=== PATIENT | female | born 1940 | race Caucasian/White ===

== ENCOUNTER 2018-10-28 19:59 | Emergency (ER) | payer MEDICARE ==
[~2018-10-28] VITALS: Ht 154.9 cm; Wt 59.0 kg
--- OUTSIDE RECORDS SUMMARY | 2018-10-28 20:01 | XMS REPORT ---
Author Author [facility] Address Unknown Phone Unavailable Care Team Providers Care Inventory Associate And Driver Name Role Phone Unavailable Unavailable Payers Payer Name Policy Type Policy Number Effective Date Expiration Date Problems This patient has no known problems. Allergies, Adverse Reactions, Alerts Allergy Name Allergy Type Status Severity Reaction(s) Onset Date Inactive Date Treating Clinician Comments scopolamine DA Active U 2018-06-25 00:00:00 tramadol DA Active U 2018-06-25 00:00:00 pentosan polysulfate sodium DA Active U 2018-06-25 00:00:00 citalopram DA Active U 2018-06-25 00:00:00 DELTROL DA Active U 2018-06-25 00:00:00 MYREBETRIA DA Active U 2018-06-25 00:00:00 TRANSDERMAL DA Active U 2018-06-25 00:00:00 No Known Allergies DA Active U 2014-12-23 00:00:00 Medications This patient has no known medications.
--- OUTSIDE RECORDS SUMMARY | 2018-10-28 20:01 | XMS REPORT | Summary of Care ---
Author Author [facility] [place] Organization [facility] [place] Address Unknown Phone Unavailable Encounter HQ Encntr_alias(FIN) [id number] Date(s): 01/22/17 - 01/22/17 [facility] [place] [address] [phone] Discharge Disposition: Home or Self Care Attending Physician: Renny Hernandez MD Vital Signs No data available for this section Problem List No data available for this section Allergies, Adverse Reactions, Alerts No data available for this section Medications No data available for this section Results No data available for this section Immunizations No data available for this section Procedures No data available for this section Social History No data available for this section Assessment and Plan No data available for this section
--- OUTSIDE RECORDS SUMMARY | 2018-10-28 20:01 | XMS REPORT | Continuity of Care Document ---
Author Author [facility] Interface Address Unknown Phone Unavailable Problems Problem Status Onset Date Classification Date Reported Comments Source I10 - ESSENTIAL (PRIMARY) HYPERTENSI Active 01/22/2017 [facility] [place] Medications Medication Details Route Status Patient Instructions Ordering Provider Order Date Source Allergies, Adverse Reactions, Alerts Substance Category Reaction Severity Reaction type Status Date Reported Comments Source Immunizations Immunization Date Given Site Status Last Updated Comments Source Results Order Name Results Value Reference Range Date Interpretation Comments Source Chest 2 views DX Chest 2 views DX EXAM: XR CHEST 2 VIEWS DATE: 01/22/2017 12:22 PM CDT INDICATION: - I10 Essential (primary) hypertension COMPARISON: 05/30/2010 TECHNIQUE: PA and lateral chest radiographs FINDINGS: The lungs are clear. The cardiomediastinal silhouette is normal. There is no acute bony abnormality. IMPRESSION: No acute abnormality SL: [id number] 01/22/2017 - - Read by: Zaida Colon Dictated Date/time: 01/22/17 14:06 Electronically Signed by: Zaida Colon 01/22/17 14:07 FINAL REPORT [facility] [place] Vital Signs Vital Sign Value Date Comments Source Encounters Location Location Details Encounter Type Encounter Number Reason For Visit Attending Provider ADM Date DC Date Status Source [facility] [place] [facility] [id number] Renny Hernandez 01/22/2017 01/23/2017 [facility] [place] Procedures Procedure Code Date Perfomer Comments Source
--- NOTE | 2018-10-28 21:32 | Diagnostic Imaging Report ---
Examination: Single AP view of the chest. COMPARISON: None. INDICATION: Chest wall pain IMPRESSION: 1. Lines and Tubes: None 2. Lungs are grossly clear. No consolidation or effusion. 3. Cardiomediastinal silhouette is normal. Pulmonary vasculature is normal. 4. No acute bony abnormalities. Soft tissues are grossly unremarkable. Signed by: Dr. Cody Ferreira M.D. on 10/28/2018 9:29 PM
[2018-10-28 22:07] LABS: BASOPHILS # (AUTO) 0.1 (0.0-0.1); BASOPHILS % 0.5 % (0.0-1.0); EOSINOPHILS # (AUTO) 0.3 (0.0-0.4); EOSINOPHILS % 3.6 % (0.0-6.0); HEMATOCRIT 38.3 % (34.2-44.1); HEMOGLOBIN 12.4 g/dL (12.0-16.0); LYMPHOCYTES # (AUTO) 2.4 (1.0-3.2); LYMPHOCYTES % 26.5 % (18.0-39.1); MEAN CORPUSCULAR HEMOGLOBIN 28.6 pg (28-32); MEAN CORPUSCULAR HGB CONC 32.4 g/dL (31-35); MEAN CORPUSCULAR VOLUME 88.5 fL (81-99); MONOCYTES # (AUTO) 0.8 (0.2-0.8); MONOCYTES % 8.8 % (4.4-11.3); NEUTROPHILS # (AUTO) 5.5 (2.1-6.9); NEUTROPHILS % 60.4 % (38.7-80.0); PLATELET COUNT 257 x10e3/uL (140-360); RED BLOOD COUNT 4.33 x10e6/uL (3.6-5.1); RED CELL DISTRIBUTION WIDTH 14.1 % (11.7-14.4)
[2018-10-28] MEDS ORDERED: DONEPEZIL HCL10 MG PO (22:16)
[2018-10-28] MEDS ORDERED: NAMENDA10 MG PO (22:16)
[2018-10-28] MEDS ORDERED: FLUTICASONE PRO16 GM (22:16)
[2018-10-28] MEDS ORDERED: FEXOFENADINE HC60 MG PO (22:16)
[2018-10-28] MEDS ORDERED: ESCITALOPRAM OXA5 MG PO (22:16)
[2018-10-28] MEDS ORDERED: TRAZODONE HCL50 MG PO (22:16)
[2018-10-28] MEDS ORDERED: GABAPENTIN300 MG PO (22:16)
[2018-10-28 22:20] LABS: ALBUMIN 3.5 g/dL (3.5-5.0); ALBUMIN/GLOBULIN RATIO 0.9 (0.8-2.0); ANION GAP 12.4 mmol/L (8-16); CALCIUM 9.4 mg/dL (8.4-10.2); CREATININE, SERUM 0.95 mg/dL (0.57-1.11); POTASSIUM 3.4 mmol/L (3.5-5.1)
[2018-10-28 22:26] LABS: BILIRUBIN,URINE NEGATIVE (NEGATIVE); CLARITY,URINE CLEAR (CLEAR); COLOR,URINE YELLOW (YELLOW); KETONES,URINE TRACE (NEGATIVE); LEUKOCYTE ESTERASE ,URINE NEGATIVE (NEGATIVE); NITRITE,URINE NEGATIVE (NEGATIVE); PROTEIN,URINE DIPSTICK NEGATIVE (NEGATIVE); URINE UROBILINOGEN 0.2 mg/dL (0.2 - 1)
[2018-10-28 22:27] LABS: CREATINE KINASE MB 1.1 ng/mL (0-5.0)
[2018-10-28 22:48] LABS: BACTERIA,URINE RARE /HPF; EPITHELIAL CELLS,URINE RARE /LPF; RBC,URINE 0-5 /HPF (0-5); WBC,URINE (MAN) 0-5 /HPF (0-5)
[2018-10-29 03:29] VITALS: BP 154/56
== END 2018-10-29 03:32 | disposition home or self-care (01) ==
LOC: ER 19:59
DX: R07.89 Other chest pain (principal); M94.0 Chondrocostal junction syndrome [Tietze]
CPT/HCPCS: 36415; 71045; 80053; 81001; 82550; 82553; 84484; 85025; 93005; 99284

== ENCOUNTER 2023-01-08 12:30 | Inpatient (IN) | payer MEDICARE ==
[~2023-01-08] VITALS: Ht 154.9 cm; Wt 59.0 kg
[~2023-01-08 12:30] MED LIST: DONEPEZIL HCL10 MG PO; ESCITALOPRAM OXA5 MG PO; FEXOFENADINE HC60 MG PO; FLUTICASONE PRO16 GM; GABAPENTIN300 MG PO; NAMENDA10 MG PO; TRAZODONE HCL50 MG PO
[2023-01-08] MEDS ORDERED: SODIUM CHLORIDE FLUSH 10 ML SYR INJ PRN ×2 (13:00→16:00)
[2023-01-08 14:04] LABS: BASOPHILS # (AUTO) 0.1 (0.0-0.1); BASOPHILS % 0.5 % (0.0-1.0); EOSINOPHILS # (AUTO) 0.4 (0.0-0.4); EOSINOPHILS % 3.9 % (0.0-6.0); HEMATOCRIT 41.3 % (34.2-44.1); HEMOGLOBIN 13.3 g/dL (12.0-16.0); LYMPHOCYTES % 21.2 % (18.0-39.1); MEAN CORPUSCULAR HEMOGLOBIN 29.8 pg (28-32); MEAN CORPUSCULAR HGB CONC 32.2 g/dL (31-35); MEAN CORPUSCULAR VOLUME 92.6 fL (81-99); MONOCYTES # (AUTO) 0.6 (0.2-0.8); MONOCYTES % 6.4 % (4.4-11.3); NEUTROPHILS # (AUTO) 6.3 (2.1-6.9); NEUTROPHILS % 67.8 % (38.7-80.0); PLATELET COUNT 282 x10e3/uL (140-360); RED BLOOD COUNT 4.46 x10e6/uL (3.6-5.1); RED CELL DISTRIBUTION WIDTH 14.5 % (11.7-14.4)
[2023-01-08 14:16] LABS: INR 0.95; PROTHROMBIN TIME 13.2 seconds (11.9-14.5)
[2023-01-08 14:17] LABS: PARTIAL THROMBOPLASTIN TIME 23.9 seconds (23.8-35.5)
[2023-01-08 14:26] LABS: ALANINE AMINOTRANSFERASE 10 IU/L (0-55); ALBUMIN 3.6 g/dL (3.5-5.0); ALBUMIN/GLOBULIN RATIO 0.9 (0.8-2.0); ALKALINE PHOSPHATASE 76 IU/L (40-150); ANION GAP 14.2 mmol/L (8-16); BLOOD UREA NITROGEN 24 mg/dL (7-26); BUN/CREATININE RATIO 24 (6-25); CALCIUM 9.4 mg/dL (8.4-10.2); CARBON DIOXIDE 23 mmol/L (22-29); CHLORIDE 107 mmol/L (98-107); CREATININE, SERUM 1.01 mg/dL (0.57-1.11); GLUCOSE 100 mg/dL (74-118); MAGNESIUM 2.2 MG/DL (1.3-2.1); PHOSPHORUS 4.1 MG/DL (2.3-4.7); POTASSIUM 4.2 mmol/L (3.5-5.1); SODIUM 140 mmol/L (136-145)
[2023-01-08] MEDS ORDERED: ONDANSETRON HCL INJ 2MG/ML 2ML 2 MG/ML VIAL IV PRN (16:00)
[2023-01-08] MEDS ORDERED: SODIUM CHLORIDE 0.9% 1000ML 1,000 ML IV ONE (16:00)
[2023-01-08 20:00] VITALS: BP 126/108; PULSE 89; RESP 18; TEMP 97.6; O2SAT 100
[2023-01-08] MEDS ORDERED: LISINOPRIL5 MG PO (20:10)
[2023-01-08] MEDS ORDERED: FAMOTIDINE20 MG PO (20:10)
[2023-01-08] MEDS ORDERED: SEROQUEL25 MG PO (20:10)
[2023-01-08] MEDS ORDERED: LOPERAMIDE2 MG PO (20:10)
[2023-01-08] MEDS ORDERED: TYLENOL325 MG PO (20:10)
[2023-01-08] MEDS ORDERED: MELATONIN1 MG PO (20:10)
[2023-01-08] MEDS ORDERED: DOCUSATE SODIU100 MG PO (20:10)
[2023-01-08] MEDS ORDERED: HYDROXYZINE HCL50 MG PO (20:10)
[2023-01-08] MEDS ORDERED: ASPIRIN81 MG PO (20:10)
[2023-01-08] MEDS ORDERED: LACTULOSE20 GM/30 M PO (20:10)
[2023-01-08] MEDS ORDERED: ACETAMINOPHEN 325 MG TAB PO PRN (20:30)
[2023-01-08] MEDS ORDERED: MELATONIN 3 MG TAB PO SCH (21:00)
[2023-01-08 21:04] VITALS: PULSE 70; RESP 20; TEMP 97.5
[2023-01-08] MEDS: GABAPENTIN 300 MG CAP PO SCH (22:00)
[2023-01-08] MEDS: MELATONIN 3 MG TAB PO SCH (22:00)
[2023-01-08] MEDS: SODIUM CHLORIDE 0.9% 1000ML 1,000 ML IV SCH (22:00)
[2023-01-08 22:50] VITALS: BP 126/108; PULSE 70; RESP 20; TEMP 97.5; O2SAT 100
[2023-01-08 22:59] LABS: COLOR,URINE YELLOW (YELLOW)
[2023-01-08 23:00] LABS: AMPHETAMINES SCREEN,URINE NEGATIVE (NEGATIVE); BENZODIAZEPINES SCREEN,URINE NEGATIVE (NEGATIVE); EPITHELIAL CELLS,URINE FEW /LPF; KETONES,URINE NEGATIVE (NEGATIVE); LEUKOCYTE ESTERASE ,URINE 1+ (NEGATIVE); NITRITE,URINE POSITIVE (NEGATIVE); PHENCYCLIDINE SCREEN,URINE NEGATIVE (NEGATIVE); PROTEIN,URINE DIPSTICK NEGATIVE (NEGATIVE); RBC,URINE 0-5 /HPF (0-5); URINE UROBILINOGEN 0.2 mg/dL (0.2 - 1)
[2023-01-08 23:09] LABS: BACTERIA,URINE MANY /HPF; CLARITY,URINE CLOUDY (CLEAR)
[2023-01-09] VITALS (7 sets, daily range): BP systolic 111–133; BP diastolic 55–98; PULSE 64–87; RESP 16–18; TEMP 97.4–98.4; O2SAT 91–100
[2023-01-09 04:49] LABS: BASOPHILS % 0.5 % (0.0-1.0); EOSINOPHILS # (AUTO) 0.5 (0.0-0.4); EOSINOPHILS % 5.9 % (0.0-6.0); HEMATOCRIT 37.5 % (34.2-44.1); HEMOGLOBIN 12.1 g/dL (12.0-16.0); LYMPHOCYTES # (AUTO) 2.3 (1.0-3.2); LYMPHOCYTES % 30.4 % (18.0-39.1); MEAN CORPUSCULAR HEMOGLOBIN 29.8 pg (28-32); MEAN CORPUSCULAR HGB CONC 32.3 g/dL (31-35); MEAN CORPUSCULAR VOLUME 92.4 fL (81-99); MONOCYTES # (AUTO) 0.6 (0.2-0.8); MONOCYTES % 7.2 % (4.4-11.3); NEUTROPHILS # (AUTO) 4.2 (2.1-6.9); NEUTROPHILS % 55.9 % (38.7-80.0); PLATELET COUNT 276 x10e3/uL (140-360); RED BLOOD COUNT 4.06 x10e6/uL (3.6-5.1); RED CELL DISTRIBUTION WIDTH 14.3 % (11.7-14.4)
[2023-01-09 05:14] LABS: ALBUMIN/GLOBULIN RATIO 0.9 (0.8-2.0); ANION GAP 11.7 mmol/L (8-16); CALCIUM 8.6 mg/dL (8.4-10.2); CREATININE, SERUM 0.79 mg/dL (0.57-1.11); POTASSIUM 3.7 mmol/L (3.5-5.1)
[2023-01-09] MEDS: SODIUM CHLORIDE 0.9% 1000ML 1,000 ML IV SCH (06:21)
[2023-01-09] MEDS: QUETIAPINE FUMARATE 25 MG TAB PO SCH ×2 (09:05→16:42)
[2023-01-09] MEDS: SENNA-S TABLET PO SCH (10:00)
[2023-01-09] MEDS: NITROFURANTOIN MACROCRYSTALS 100 MG CAP PO SCH ×2 (11:18→16:42)
[2023-01-09] MEDS: DEXTROSE 5%/0.45% SOD CHL 1,000 ML IV SCH ×2 (12:24→22:00)
[2023-01-09] MEDS: GABAPENTIN 300 MG CAP PO SCH (23:04)
[2023-01-09] MEDS: MELATONIN 3 MG TAB PO SCH (23:06)
[2023-01-10 05:00] VITALS: BP 156/71; PULSE 61; RESP 16; TEMP 98; O2SAT 99
[2023-01-10 05:07] LABS: BASOPHILS % 0.4 % (0.0-1.0); EOSINOPHILS # (AUTO) 0.4 (0.0-0.4); EOSINOPHILS % 5.7 % (0.0-6.0); HEMATOCRIT 43.7 % (34.2-44.1); HEMOGLOBIN 13.6 g/dL (12.0-16.0); LYMPHOCYTES # (AUTO) 2.5 (1.0-3.2); LYMPHOCYTES % 36.9 % (18.0-39.1); MEAN CORPUSCULAR HGB CONC 31.1 g/dL (31-35); MONOCYTES # (AUTO) 0.5 (0.2-0.8); MONOCYTES % 7.4 % (4.4-11.3); NEUTROPHILS # (AUTO) 3.4 (2.1-6.9); NEUTROPHILS % 49.3 % (38.7-80.0); PLATELET COUNT 242 x10e3/uL (140-360); RED BLOOD COUNT 4.54 x10e6/uL (3.6-5.1)
[2023-01-10 05:37] LABS: ALBUMIN 3.3 g/dL (3.5-5.0); ALBUMIN/GLOBULIN RATIO 0.8 (0.8-2.0); ANION GAP 13.7 mmol/L (8-16); CALCIUM 9.1 mg/dL (8.4-10.2); CREATININE, SERUM 0.78 mg/dL (0.57-1.11); POTASSIUM 3.7 mmol/L (3.5-5.1)
[2023-01-10 05:41] LABS: MEAN CORPUSCULAR VOLUME 96.3 fL (81-99)
[2023-01-10] MEDS: DEXTROSE 5%/0.45% SOD CHL 1,000 ML IV SCH (08:00)
[2023-01-10] MEDS: SENNA-S TABLET PO SCH (09:00)
[2023-01-10] MEDS ORDERED: BALSAM PERU/CASTOR OIL 60 GM OINT...G. TP SCH ×2 (09:00→21:00)
[2023-01-10 10:01] VITALS: BP 115/76; PULSE 60; RESP 20; TEMP 98; O2SAT 94
[2023-01-10] MEDS: QUETIAPINE FUMARATE 25 MG TAB PO SCH (10:02)
[2023-01-10] MEDS: NITROFURANTOIN MACROCRYSTALS 100 MG CAP PO SCH (10:03)
[2023-01-10] MEDS ORDERED: ONDANSETRON HCL 4 MG ORAL DISINTEGRATING TAB PO PRN (12:15)
[2023-01-10 12:47] VITALS: BP 121/91; PULSE 88; RESP 17; O2SAT 94
== END 2023-01-10 13:34 | disposition hospice, inpatient (51) | DRG 690 ==
LOC: ER 12:47 → ERHOLD 15:51 → MED/SURG 19:46 → OBSVTOIN 01-09 14:11
PROVIDERS: ADMIT Family Medicine Adult Medicine; ATTEND Family Medicine Adult Medicine
DX: N30.00 Acute cystitis without hematuria (principal); E44.0 Moderate protein-calorie malnutrition; R62.7 Adult failure to thrive; E86.0 Dehydration; R55 Syncope and collapse; Z66 Do not resuscitate; I10 Essential (primary) hypertension; F03.90 Unspecified dementia, unspecified severity, without behavioral disturbance, psychotic disturbance, mood disturbance, and anxiety; Z20.822 Contact with and (suspected) exposure to COVID-19; Z79.899 Other long term (current) drug therapy; Z68.24 Body mass index [BMI] 24.0-24.9, adult
CPT/HCPCS: 36415; 70450; 71045; 80053; 80307; 80320; 81001; 83735; 84100; 84134; 84443; 84484; 85025; 85610; 85730; 87086; 87186; 93005; 99252; 99284; G0378; J7030